=== PATIENT | female | born 1990 ===

== ENCOUNTER 2023-12-13 15:22 | Emergency (ER) | payer SELFPAY ==
[2023-12-13 15:33] VITALS: TEMP 97
[2023-12-13] MEDS ORDERED: NS 1,000 ML IV ONE (16:00)
[2023-12-13 16:05] LABS: BASO % 0.2 % (0.0-2.0); EOS # 0.1 K/mm3 (0.0-0.7); EOS % 0.6 % (0.0-4.0); GRAN # 9.3 K/mm3 (1.4-6.5); GRAN % 79.6 % (42.2-75.2); HEMATOCRIT 39.8 % (37.0-47.0); HEMOGLOBIN 13.5 g/dl (12.5-16.0); LYMPH # 1.8 K/mm3 (1.2-3.4); MEAN CELL VOLUME 89 fl (80.0-100.0); MEAN CORPUSCULAR HEMOGLOBIN 30 pg (27-31); MEAN CORPUSCULAR HGB CONC 34 g/dl (33.0-37.0); MEAN PLATELET VOLUME 12.2 fl (7.4-10.4); MONO # 0.5 K/mm3 (0.1-0.6); MONO % 4.3 % (1.7-9.3); PLATELET COUNT 246 K/mm3 (130-400); RED BLOOD COUNT 4.48 M/mm3 (4.10-5.30); REDCELL DISTRIBUTION WIDTH-CV 12.6 % (11.5-14.5)
[2023-12-13 17:48] LABS: TRICYCLIC ANTIDEPRESS URINE NEGATIVE (NEGATIVE)
[2023-12-13 19:19] LABS: ALANINE AMINOTRANSFERASE 42 U/L (0-55); ALBUMIN 3.6 g/dL (3.5-5.0); ALKALINE PHOSPHATASE 76 U/L (40-150); ANION GAP 12 mmol/L (7-16); AST,SGOT 29 U/L (5-34); BILIRUBIN,TOTAL 0.2 mg/dL (0.2-1.2); BLOOD UREA NITROGEN 13 mg/dL (7-19); C-REACTIVE PROTEIN 0.58 mg/dL (0.00-0.50); CALCIUM 9.2 mg/dL (8.4-10.2); CHLORIDE 108 mEq/L (98-107); CREATININE, serum 0.87 mg/dL (0.57-1.11); GLUCOSE 295 mg/dL (70-99); MAGNESIUM 1.9 mg/dL (1.6-2.6); POTASSIUM 4.9 mEq/L (3.5-4.5); SODIUM 137 mEq/L (136-145)
[2023-12-13 19:20] LABS: ALCOHOL(ethanol),MEDICAL < 10 mg/dL (0-10); SALICYLATE < 5.0 mg/dL (15.0-30.0)
[2023-12-13 20:10] LABS: INR 1.1 (0.8-3.0)
[2023-12-13 21:23] LABS: COLLECTION METHOD CLEAN CATCH
[2023-12-13 21:29] LABS: URINE APPEARANCE CLEAR (CLEAR/HAZY); URINE BLOOD NEGATIVE (NEGATIVE); URINE COLOR YELLOW (YELLOW); URINE GLUCOSE 3+ (NEGATIVE); URINE KETONE TRACE (NEGATIVE); URINE NITRATE POSITIVE (NEGATIVE); URINE PROTEIN(semi-quant) NEGATIVE (NEGATIVE); URINE UROBILINOGEN 0.2 E.U/dL (0.2-1.0)
[2023-12-13] MEDS ORDERED: MACROBID 1100 MG/CAP PO (22:18)
[2023-12-13 22:29] VITALS: BP 106/79; PULSE 91
== END 2023-12-13 23:04 | disposition home or self-care (01) ==
LOC: COL.ER 15:22
PROVIDERS: Emergency Medicine
DX: F12.929 Cannabis use, unspecified with intoxication, unspecified (principal); N39.0 Urinary tract infection, site not specified
CPT/HCPCS: J7030